=== PATIENT | male | born 1965 | race Caucasian/White ===

== ENCOUNTER 2017-08-27 07:27 | Emergency (ER) | payer MEDICARE, OTHER ==
[2017-08-27 07:43] VITALS: BP 123/86
--- NOTE | 2017-08-27 07:45 | ED Physician Documentation ---
Ear Complaints - HISTORIAN Historian: patient - HPI Stated Complaint: FB IN EAR Chief Complaint: Ear Complaints Location of Pain: L ear Further Comments: yes (52 year old male patient presents with complaint of dome of hearing aid in his ear canal since this morning; denies any pain.) - ROS CONST: no problems CVS/RESP: none GI/: denies: black stools, nausea, vomiting, other MS/SKIN/LYMPH: none All Systems -: Yes - PAST HX Past History: other (depression; CAD, HLD, HTN, CVA) Allergies/Adverse Reactions: Allergies Allergy/AdvReac Type Severity Reaction Status Date / Time No Known Allergies Allergy Verified 08/27/17 07:43 Home Medications: Ambulatory Orders Medication Instructions Recorded Aspir 81 81 mg PO DAILY u2 05/30/12 Citalopram Hydrobromide [Celexa] 20 mg PO DAILY u2 05/30/12 Clopidogrel Bisulfate [Plavix] 75 mg PO DAILY u2 05/30/12 - SOCIAL HX Smoking History: non-smoker - FAMILY HX Family History: No - VITAL SIGNS Vital Signs: Vital Signs Temp Pulse Resp BP Pulse Ox 97.6 F 57 L 20 123/86 99 08/27/17 07:31 08/27/17 07:31 08/27/17 07:31 08/27/17 07:31 08/27/17 07:31 - REVIEWED ASSESSMENTS Nursing Assessment Reviewed: Yes Vitals Reviewed: Yes Progress - Progress Progress: Clear dome removed from left ear canal with splint forceps. Patient tolerated well. Ear Complaint Physical Exam - EXAM General Appearance: no acute distress, alert Ear: auricle nml, TM's nml, other (Left ear canal with FB noted) Mouth/Throat: lips nml Resp/CVS: no resp. distress, reg. rate & rhythm Skin: nml color Neuro/Psych: oriented x3, mood/affect nml Discharge Clincal Impression: Foreign body in ear Qualifiers: Encounter type: initial encounter Laterality: left Qualified Code(s): T16.2XXA - Foreign body in left ear, initial encounter Referrals: Primary Doctor,No [Primary Care Provider] - 2 Days Condition: Stable Disposition: 01 HOME, SELF-CARE Decision to Admit: NO Decision Time: 07:44
== END 2017-08-27 07:51 | disposition home or self-care (01) ==
LOC: ED 07:27
DX: T16.2XXA Foreign body in left ear, initial encounter (principal); X58.XXXA Exposure to other specified factors, initial encounter; Y92.9 Unspecified place or not applicable; Y93.9 Activity, unspecified; Y99.9 Unspecified external cause status
CPT/HCPCS: 99282

== ENCOUNTER 2017-11-01 23:57 | Emergency (ER) | payer MEDICARE, OTHER ==
--- NOTE | 2017-11-02 00:18 | ED Physician Documentation ---
General Adult - HISTORIAN Historian: patient - HPI Stated Complaint: Right index finger laceration Chief Complaint: General Adult Onset: hours Timing: still present Severity: mild Further Comments: yes (Pt is a 52 yo male with a superficial laceration to his R index finger. Tetanus is utd. Pt was opening a bag of charcoal with his knife when he cut himself.) - ROS CONST: no problems EYES/ENT: none CVS/RESP: none GI/: none MS/SKIN/LYMPH: other (superficial R index finger laceration) - PAST HX Past History: other (DM, CVA, HTN, HLD) Allergies/Adverse Reactions: Allergies Allergy/AdvReac Type Severity Reaction Status Date / Time No Known Allergies Allergy Verified 08/27/17 07:43 Home Medications: Ambulatory Orders Medication Instructions Recorded Aspir 81 81 mg PO DAILY u2 05/30/12 Citalopram Hydrobromide [Celexa] 20 mg PO DAILY u2 05/30/12 Clopidogrel Bisulfate [Plavix] 75 mg PO DAILY u2 05/30/12 - SOCIAL HX Smoking History: non-smoker - FAMILY HX Family History: No - VITAL SIGNS Vital Signs: Vital Signs Temp Pulse Resp BP Pulse Ox 98.0 F 98 H 16 119/72 98 11/01/17 23:57 11/01/17 23:57 11/01/17 23:57 11/01/17 23:57 11/01/17 23:57 - REVIEWED ASSESSMENTS Nursing Assessment Reviewed: Yes Vitals Reviewed: Yes Progress - Progress Progress: Tissue adhesive to R index finger laceration. General Adult Physical Exam - PHYSICAL EXAM GENERAL APPEARANCE: no distress NECK: normal inspection, supple RESPIRATORY: no resp distress, chest non-tender, breath sounds normal CVS: reg rate & rhythm, heart sounds normal BACK: normal inspection SKIN: other (superficial laceration to R index finger, 2 cm) EXTREMITIES: other (superficial laceration to R index finger, 2 cm) NEURO: oriented X3, motor nml, sensation nml Discharge Clincal Impression: superficial R index finger laceration Referrals: Primary Doctor,No [Primary Care Provider] - Condition: Good Disposition: 01 HOME, SELF-CARE Decision to Admit: NO Decision Time: 00:20
[2017-11-02 00:48] VITALS: BP 125/72
== END 2017-11-02 00:30 | disposition home or self-care (01) ==
LOC: ED 23:57
DX: S61.210A Laceration without foreign body of right index finger without damage to nail, initial encounter (principal); W26.8XXA Contact with other sharp object(s), not elsewhere classified, initial encounter; Y92.018 Other place in single-family (private) house as the place of occurrence of the external cause; Y93.G2 Activity, grilling and smoking food; Y99.9 Unspecified external cause status
CPT/HCPCS: 12001; 99282